=== PATIENT | female | born 1945 | race Caucasian/White ===

== ENCOUNTER 2018-08-01 11:03 | Outpatient (CLI) | payer MEDICARE, BC, SELFPAY ==
--- NOTE | 2018-08-01 10:58 | DI.RAD_ITS ---
SYMPTOMS/DIAGNOSIS: EVALUATE RIGHT THUMB RIGHT THUMB: Three views. Joint space narrowing and periarticular spurring are seen at the interphalangeal joint of the thumb. There is mild periarticular spurring at the 1st carpometacarpal joint. The bones are intact. The soft tissues are unremarkable. IMPRESSION: Osteoarthritis of the right thumb.
== END 2018-08-01 11:23 ==
PROVIDERS: PCP Family Medicine; Referring Provider Family Medicine; Visit Provider Student in an Organized Health Care Education/Training Program
DX: M25.341 Other instability, right hand (principal); M18.11 Unilateral primary osteoarthritis of first carpometacarpal joint, right hand; I10 Essential (primary) hypertension; E11.9 Type 2 diabetes mellitus without complications; Z79.84 Long term (current) use of oral hypoglycemic drugs; M65.311 Trigger thumb, right thumb
CPT/HCPCS: 99202; 99203; 73140

== ENCOUNTER 2018-08-28 11:46 | Day surgery (SDC) | payer MEDICARE, BC, SELFPAY ==
[2018-08-28 11:57] VITALS: BP 128/68; PULSE 89; RESP 16; TEMP 35.7; O2SAT 98
--- NOTE | 2018-08-28 12:56 | W.PM.DSUDISC ---
Discharge Plan Disposition Patient Disposition: HOME Condition: Good Discharge Details Reason For Visit: R Trigger Thumb Attending Provider: Monster Lomax Primary Care Provider: Adriana Houston Home Meds and New Rx's Prescriptions: Continued FREESTYLE LANCETS 1 PKT EACH 1 unit SQ DAILY Qty: 90 RF: 3 FREESTYLE LITE STRIP 1 STRIP strip 1 strip SQ DAILY Qty: 90 RF: 3 lisinopril 40 MG tablet 40 mg PO DAILY RF: 0 hydrochlorothiazide 25 MG tablet 25 mg PO DAILY RF: 0 metformin 500 MG tablet 1,000 mg PO BID RF: 0 levothyroxine 137 MCG tablet 137 mcg PO DAILY RF: 0 coenzyme Q10 [CoQ-10] 100 MG capsule 100 mg PO DAILY Qty: 3 RF: 0 omega-3 fatty acids-fish oil [Fish Oil] 1 EACH capsule 1 ea PO BID RF: 0 Vitamin D3 (calcium cit-phos) 1 EACH tablet 1 ea PO DAILY Qty: 2 RF: 0 CENTRUM SILVER TABLET 1 EACH tablet 1 ea PO DAILY RF: 0 atorvastatin 10 MG tablet 20 mg PO DAILY RF: 0 fluticasone propionate 16 GM spray,suspension 16 gm NS PRN RF: 0 loperamide [Imodium A-D] 1 MG/7.5 ML liquid 1 mg PO PRN RF: 0 cholecalciferol (vitamin D3) [Vitamin D3] 2,000 UNIT capsule 2,000 unit PO DAILY RF: 0 aspirin [Aspir-81] 81 MG tablet,delayed release (DR/EC) 81 mg PO DAILY RF: 0 trazodone 150 MG tablet 150 mg PO HS RF: 0 Januvia 25 MG tablet 25 mg PO DAILY RF: 0 ranitidine HCl 150 mg Tablet 150 mg PO HS RF: 0 Discharge Instructions Additional Instructions: Take up to 600mg Ibuprofen every 8 hours as needed for pain control in addition to 1000mg of Acetaminophen every 8 hours. Referrals: Monster Lomax MD [ [facility] STAFF PHYSICIAN] - Activity:: Elevate Remove Dressings/Wound Care:: 48 hours Shower/Bathe:: 48 hours Diet:: As Tolerated Discharge Orders Discharge Orders: Discharge Order (Routine); Ordered 08/28/18 Ordered By: Monster Lomax DS: Diagnosis Discharge Diagnosis (1) Trigger thumb, right thumb: Status: Acute
[2018-08-28] MEDS: Sodium Bicarbonate 50 MEQ/50 ML VIAL (13:01)
[2018-08-28] MEDS: Lidocaine 1% Multi-Dose 50 ML VIAL (13:04)
[2018-08-28] MEDS: Bupivacaine 0.5% Pres-Free 30 ML VIAL (13:14)
--- NOTE | 2018-08-28 14:38 | ROE_ITS ---
Date of service: 08/28/18 Time of Service: 14:37 Operative Note DATE OF PROCEDURE: 08/28/18 PRE-OP DIAGNOSIS: Trigger Finger -right thumb POST-OP DIAGNOSIS: same PROCEDURE: Trigger Finger Release -right thumb SURGEON: Monster Lomax ANESTHESIA: local ESTIMATED BLOOD LOSS: 0 PATHOLOGY: none sent COMPLICATIONS: None Patient was transported to: same day Patient's condition: stable Indications: I have seen Prachi in clinic for symptoms of a trigger finger. The catching, clicking, locking, and pain limited function. The diagnosis of trigger finger was evident. The symptoms had not responded to conservative measures. I discussed trigger finger release with the patient. I reviewed the risks of the procedure to include, but not limited to, bleeding, infection, pain, stiffness, incomplete release, damage to nerves or vessels, continued catching, recurrence. Despite these risks, the patient elected to proceed. Findings: There was a tightened A1 geneva which was released. The flexor tendons were inspected and the patient was able to move the finger without any catching, clicking, or locking. Procedure Description: Prachi was greeted in the preoperative holding area where the correct side was identified and marked. The consent was reviewed with the patient and signed. All questions were answered. She was taken back to the operating room. The patient was placed into the supine position on the operating room table with the right arm on an arm board. All bony prominences were well padded. No prophylactic antibiotics were administered since this was a clean, elective hand surgical case. The right arm was then prepped with Chloraprep and draped in a standard fashion with stock inette and extremity drape. A timeout to confirm correct identity, side and site, procedure, allergies, anesthesia, and medical concerns was performed. The surgical site was marked as a longitudinal incision directly over the A1 geneva of the involved digit. This was confirmed with palpation during finger flexion. This area, overlying the metacarpal head, was then anesthetized with 1% Lidocaine. The patient tolerated this well and once the anesthetic had setup, the procedure began. A longitudinal incision was made through skin only, approximately 1cm. The deep tissues were dissected bluntly. Once the A1 geneva and flexor tendons were identified the soft tissue including neurovascular structures were retracted medially and laterally. There were no crossing structures over the A1 geneva. The proximal edge of the geneva was identified and the geneva was incised with tenotomy scissors. There was a release of the tendons once this was fully released. The tendons were then removed from the wound and inspected. Excess synovium was resected. The tendons were then returned and the patient was asked to move the finger into deep flexion and back to extension. There was no recreation of the pre-operative symptoms. The hand was then once more inspected for any A0 geneva or area of possible constriction. The wound was then irrigated and the skin was closed with a 4-0 Nylon. This was dressed with gauze and a Conform dressing. The patient tolerated the procedure well and was returned to the Same Day Surgery area in a stable condition suffering no known complication.
== END 2018-08-28 14:00 | disposition home or self-care (01) ==
PROVIDERS: PCP Family Medicine; Visit Provider Student in an Organized Health Care Education/Training Program
PROC: (CPT 26055; principal; 2018-08-28 12:15)
DX: M65.311 Trigger thumb, right thumb (principal)
CPT/HCPCS: 26055

== ENCOUNTER → 2018-09-07 09:04 | Outpatient (BNVA) | payer MEDICARE, BC, SELFPAY | PROVIDERS: PCP Family Medicine; Referring Provider Family Medicine; Visit Provider Student in an Organized Health Care Education/Training Program | DX: Z47.89 Encounter for other orthopedic aftercare (principal); I10 Essential (primary) hypertension; E11.9 Type 2 diabetes mellitus without complications; M65.311 Trigger thumb, right thumb ==

== ENCOUNTER 2018-10-22 00:29 | Outpatient (CLI) | payer MEDICARE, BC, SELFPAY ==
--- NOTE | 2018-10-22 15:20 | DI.RAD_ITS ---
SYMPTOM/DIAGNOSIS: F/U OSTEOPOROSIS M81.0 DEXA SCAN: Routine examination. No priors for comparison. Evaluation of the right hip shows a total T-score of -2.1 and a Z-score of -0.5 This is consistent with osteopenia and an increased fracture risk. Evaluation of the lumbar spine shows a total T-score of -0.8 and a Z-score of 1.5 which is within normal limits. There is no evidence of osteoporosis.
== END 2018-10-22 00:49 ==
PROVIDERS: PCP Family Medicine; Visit Provider Family Medicine
DX: M85.88 Other specified disorders of bone density and structure, other site (principal)
CPT/HCPCS: 77080

== ENCOUNTER 2018-10-31 14:09 | Outpatient (CLI) | payer MEDICARE, BC, SELFPAY ==
--- NOTE | 2018-10-31 13:36 | DI.RAD_ITS ---
SYMPTOM/DIAGNOSIS: RT HIP PAIN PELVIS AND RIGHT HIP: Comparison is made with 14 September 2011. There is a left hip prosthesis. The right hip joint space is relatively well maintained. There is some periarticular sclerosis as well as spurring from the femoral head and acetabulum as well as subchondral cyst in the femoral head. There is spurring at the inferior S-I joints. Degenerative changes are also noted in the lower lumbar spine IMPRESSION: Moderate degenerative changes of the right hip.
== END 2018-10-31 14:29 ==
PROVIDERS: PCP Family Medicine; Referring Provider Family Medicine; Visit Provider Student in an Organized Health Care Education/Training Program
DX: M25.551 Pain in right hip (principal); M16.11 Unilateral primary osteoarthritis, right hip; Z96.642 Presence of left artificial hip joint
CPT/HCPCS: 99214; 73502

== ENCOUNTER 2019-01-10 00:20 | Outpatient (CLI) | payer MEDICARE, BC, SELFPAY ==
--- NOTE | 2019-01-10 07:26 | DI.RAD_ITS ---
EXAM: RF JOINT INJECTION FLUORO GUID CLINICAL HISTORY: RT HIP PAIN, ARTHROPATHY,M16.11,PRIMARY OA RT HIP. TECHNIQUE: Fluoroscopy was provided for guidance with injection. FINDINGS: Please see procedure note for details. Fluoro time: 8.2 seconds
[2019-01-10] MEDS: Omnipaque 300 MG/ML 10 ML BTL IJ (16:02)
[2019-01-10] MEDS: methylPREDNISolone ACETATE 80 MG/ML VIAL IM (16:03)
[2019-01-10] MEDS: Bupivacaine 0.5% Pres-Free 10 ML VIAL 6 ML IJ (16:03)
--- NOTE | 2019-01-10 16:39 | W.PROCNOTE ---
Date of service: 01/10/19 Time of Service: 15:39 Procedure Note Date of procedure: 01/10/19 Procedure: Right Hip Injection with Fluoroscopic Guidance Surgeon/Proceduralist/Physician: Monster Lomax Procedure Diagnosis: Right Hip Osteoarthritis Procedure Indications: Prachi has had persistent pain of the RIGHT hip and groin. Noninvasive measures have been tried. To serve as both diagnostic and therapeutic, an injection under fluoroscopy was recommended. I had discussed the risks of the procedure and the patient elected to proceed. Procedure Description: Prachi was greeted in the flouroscopy room. The correct side was identified and the consent was reviewed with the patient and signed. The patient was then placed in the supine position on the fluoroscopy table. The RIGHT hip was then prepped with Chloraprep. The anterolateral injection starting point was identiifed by bony landmarks and fluoroscopy. The skin and soft tissue in the tract of the injection was anesthetized with 1% Lidocaine. A spinal needle was then inserted deep into the hip joint at the level of the lateral femoral neck under fluoroscopic guidance. A small amount of Omnipaque solution was injected to confirm intraarticular placement. Once confirmed, the hip was injected with 6cc of 0.5% Bupivicaine and 80mg of Depo-Medrol. A bandaid was placed on the injection site. The patient tolerated the procedure well and noted improvement in pre-injection pain.
== END 2019-01-10 00:40 ==
PROVIDERS: PCP Family Medicine; Visit Provider Student in an Organized Health Care Education/Training Program
DX: M25.551 Pain in right hip (principal); M16.11 Unilateral primary osteoarthritis, right hip
CPT/HCPCS: 20610; 77002; J1040

== ENCOUNTER → 2019-11-25 12:55 | Outpatient (BNVA) | payer MEDICARE, BC, SELFPAY | PROVIDERS: PCP Family Medicine; Referring Provider Family Medicine; Visit Provider Student in an Organized Health Care Education/Training Program | DX: M16.11 Unilateral primary osteoarthritis, right hip (principal); E11.9 Type 2 diabetes mellitus without complications; I10 Essential (primary) hypertension; Z79.84 Long term (current) use of oral hypoglycemic drugs | CPT/HCPCS: 99213 ==

== ENCOUNTER 2019-11-27 14:30 | Outpatient (CLI) | payer MEDICARE, BC, SELFPAY ==
--- NOTE | 2019-11-27 14:30 | DI.RAD_ITS ---
EXAM: XR PELVIS AP CLINICAL HISTORY: preop. TECHNIQUE: 2D digital imaging was performed. COMPARISON: CR XR hip RT complete AP pelvis from 10/31/2018 FINDINGS: There is an old left total hip replacement. Mwib-eq-actonysq degenerative changes are seen in the ri ght hip with joint space narrowing, subchondral sclerosis and subchondral cysts. Bones are normally mineralized. The soft tissues are unremarkable. IMPRESSION: Degenerative changes of the right hip. DATA REPOSITORY: RADIATION DOSE DELIVERED:
== END 2019-11-27 14:50 ==
PROVIDERS: PCP Family Medicine; Referring Provider Family Medicine; Visit Provider Physician Assistant Surgical
DX: M16.11 Unilateral primary osteoarthritis, right hip (principal)
CPT/HCPCS: 72170

== ENCOUNTER 2019-11-29 02:17 | Outpatient (CLI) | payer MEDICARE, BC, SELFPAY ==
[2019-12-01 17:55] LABS: COVID-19 RT-PCR Result NEGATIVE (Negative)
== END 2019-11-29 02:37 ==
PROVIDERS: PCP Family Medicine; Visit Provider Student in an Organized Health Care Education/Training Program
DX: M16.11 Unilateral primary osteoarthritis, right hip (principal)
CPT/HCPCS: 36415; 80048; 85027; 86850; 86900; 86901; U0003

== ENCOUNTER 2019-11-29 03:45 | Outpatient (CLI) | payer MEDICARE, BC, SELFPAY ==
[2019-11-29 14:47] LABS: HCT 41.2 % (36.0-46.0); HGB 13.5 g/dL (11.2-15.7); MCH 30.9 pg (27.0-33.0); MCHC 32.8 % (32.0-36.0); MCV 94.3 fL (80-95); MPV 10.5 fL (8.0-11.0); Platelet Count 274 10^3/uL (130-400); RBC 4.37 10^6/uL (3.93-5.22); RDW 12.9 % (11.7-14.6); RDW-SD 44.7 fL; WBC 7.84 10^3/uL (4.4-10.8)
[2019-11-29 16:01] LABS: Anion Gap 7.3 mmol/L (3-11); BUN 14 mg/dL (7-18); CO2 30.7 mmol/L (21.0-32.0); CREATININE 0.87 mg/dL (0.55-1.02); Calcium 9.1 mg/dL (8.5-10.1); Chloride 104 mmol/L (98-107); Glucose 129 mg/dL (74-106); Potassium 4.2 mmol/L (3.5-5.1); Sodium 142 mmol/L (136-145)
== END 2019-11-29 04:05 ==
PROVIDERS: PCP Family Medicine; Visit Provider Student in an Organized Health Care Education/Training Program
DX: M16.11 Unilateral primary osteoarthritis, right hip (principal); Z01.818 Encounter for other preprocedural examination
CPT/HCPCS: 36415; 80048; 85027; 86850; 86900; 86901

== ENCOUNTER 2019-12-04 06:05 | Observation (INO) | payer MEDICARE, BC, SELFPAY ==
[2019-12-04] VITALS (10 sets, daily range): BP systolic 113–157; BP diastolic 49–78; PULSE 53–84; RESP 10–19; TEMP 35.1–36.3; O2SAT 96–100
[2019-12-04] MEDS: Acetaminophen 500 MG TAB 1000 MG PO ×2 (06:41→13:45)
[2019-12-04] MEDS: Celecoxib 200 MG CAP 400 MG PO (06:41)
[2019-12-04] MEDS: Lactated Ringers 1,000 ML 80 ML IV (07:00)
--- NOTE | 2019-12-04 07:00 | DI.RAD_ITS ---
EXAM: XR HIP RT IN OR CLINICAL HISTORY: DJD RIGHT HIP. TECHNIQUE: 2D and realtime digital imaging was performed. COMPARISON: No exams were available for comparison FINDINGS: Fluoroscopy was provided in the OR. Hard copy images show placement of a right hip prosthesis. The alignment appears satisfactory. Please see procedure note for details. Fluoro time: 55.6 seconds RADIATION DOSE DELIVERED:
[2019-12-04] MEDS: ceFAZolin 2 GM/50 ML BAG IVPB (07:46)
[2019-12-04] MEDS: Ketorolac 30 MG/ML VIAL (08:27)
[2019-12-04] MEDS: Bupivacaine 0.25% Pres-Free 30 ML VIAL (08:27)
--- NOTE | 2019-12-04 11:07 | ROE_ITS ---
Date of service: 12/04/19 Time of Service: 11:07 Operative Note Operative Note DATE OF PROCEDURE: 12/04/19 PRE-OP DIAGNOSIS: Right Hip Osteoarthritis POST-OP DIAGNOSIS: same PROCEDURE: Right Anterior Total Hip Arthroplasty SURGEON: Monster Lomax VIDEO GAMES MECHANIC: Iqra Huffman ANESTHESIA: spinal ESTIMATED BLOOD LOSS: 300 PATHOLOGY: none sent TOURNIQUET TIME: 0 COMPLICATIONS: None Patient was transported to: PACU Patient's condition: stable Implants: 1. Depuy [place] Acetabular Component, 54mm 2. Depuy Acetabular Liner, 37a62fr 3. Depuy Corail Standard Collared Femoral Stem, Size 13 4. Depuy Altrx Ceramic Femoral Head, Size 36+8.5mm Indications: I have seen Prachi in clinic for symptoms of hip arthritis, confirmed with radiographic findings. Prachi has exhausted nonoperative methods and was having significant limitations in daily function and desired better fun ction and less pain. I discussed the technical details of a hip replacement. I explained the risks of the procedure to include, but not limited to, bleeding, infection, pain, stiffness, fracture, damage to nerves and vessels, damage to muscles and tendons, loosening, instability, leg length inequality, need for repeat procedure, blood clot and cardiopulmonary demise. Despite these risks, she elected to proceed. Findings: There was significant signs of arthritis throughout the hip. Procedure Description: Prachi was greeted in the preoperative holding area where the correct side was identified and marked. The consent was reviewed with the patient and signed. The history and physical was updated. All questions were answered. Prachi was taken back to the operating room. A spinal anesthestic was then administered. The patient was placed into the supine position on the operating room table. The patient was then positioned onto the ARCH table. Both feet were wrapped with Webrill cotton wrap along with Coban. The feet were placed in specialized boots for the ARCH table, well seated within the boot and secured. SCDs were applied. The patient was then slid down onto a peroneal post and the nonoperative leg was secured in a leg parrish attached to the table. The operative side was placed into the ARCH table attachment and bed height and positioning was secured. A preoperative AP pelvis was obtained to serve as a reference for determining leg lengths. Prophylactic antibiotics in the form of Cefazolin were administered. 1g of Tranxemic Acid was given intravenously within 30 minutes of incision. The right leg was then prepped with Chloraprep and draped in a standard fashion. A second prep with Chloraprep was performed prior to placement of a shower-curtain type drape with Iodine impregnated skin protection. A timeout to confirm correct identity, side and site, procedure, allergies, anesthesia, and medical concerns was performed. An obliquely oriented incision was made starting lateral to the ASIS and running distal over the Tensor Fascia Tali (TFL) muscle belly toward the fibular head, approximately 10cm. The skin and soft tissue was dissected sharply, through Sarah?s fascia, and to the fascia of the TFL. With the fascia and superior border of the IT band identified, the fascia was incised with a new knife just above any perforators from the IT band. The TFL muscle belly was bluntly dissected away from the fascia and moved laterally. The fat between TFL and rectus was identified to ensure the dissection was not within the TFL. Blunt dissection created space between abductors and the capsule and retractor was placed over the lateral femoral neck. The fibers of the rectus femoris tendon were identified and these were freed from the anterior capsule. A second cobra retractor was placed around the medial femoral neck. The TFL was further retracted laterally to show the deep fascia. Careful dissection through this layer identified three main crossing vessels of the lateral femoral circumflex. These were cauterized in multiple locations and then cut without any noticeable bleeding. The TFL was further released bluntly from the deep fascia to expose anterior hip capsule and fat The Jonas orthopaedic retractor was then placed b eneath the TFL and against sartorius and medial soft tissues to protect and retract the soft tissues. A T-capsulotomy was then performed starting at the superior lateral acetabulum and moving distally to the intertrochanteric ridge. These capsular flaps were tagged with a No. 1 Ethibond and elevated from within. The capsular flaps were released to the shoulder of the lateral neck and to the lesser trochanter to give excellent visualization of the proximal femur. A neck osteotomy was performed using an oscillating saw based on preoperative templates. This cut started in the shoulder and of the lateral neck and exited medially. The saw was at all times directed medially to avoid injury to the greater trochanter. 6cm of traction was applied to the leg and the osteotomy opened. The femoral head was removed with a corkscrew, making sure to protect the TFL on its exit. This was measured on the back table to determing the starting reamer size. Portions of the rectus obscuring visualization were minimally elevated off the superior acetabulum. An anterior retractor was placed over the anterior wall between capsule and labrum and attached to the Gripper retraction system. A posterior retractor was placed similarly. This provided excellent visualization. The contents of the cotyloid fossa were removed with electrocautery and the labrum was removed with a knife. There was a notable floor osteophyte. There was significant chondromalacia of the superior acetabulum. Acetabular reaming began with a 48mm reamer. This first reaming was directed anterior to posterior and medial to get down to the true floor. This was inspected and reamed until the true floor was reached. The anterior retractor was then released and entry and exit was provided by traction on the capsular flaps. I then reamed sequentially up to a 54mm reamer where good fit was obtained. The larger reamers were oriented based on anatomical reference of the anterior and lateral ji to ensure proper abduction and anteversion. Positioning and size was confirmed with the fluoroscopy. A 54mm Depuy [place] acetabular component was selected. The acetabulum was reamed around the periphery with the selected acetabular size to prevent a rim fit. The deep tissues were irrigated. The acetabular component was then impacted in a position of about 40-45 degrees of abduction and 15-20 degrees of anteversion, using the patient?s anatomy as the ultimate landmark. Fluoroscopy was used to confirm this. There was excellent orthopedic radiologic technologist of the acetabular component and the inserting handle was removed. A primary acetabular screw was placed into the ilium by drilling through one of the holes in the acetabular component. This was measured and an approrpriately sized screw was placed with excellent purchase. It was checked not to be proud. A second screw was placed in a similar fashion. The acetabular liner, Depuy 17r82re polyethylene liner, was inserted and lined up with the tines of the acetabular component. There was no soft tissue interposition. The liner was then impacted into position and confirmed to be well-seated. A portion of the karolina-articular cocktail was then injected around the acetabulum into the capsule and periosteum. This cocktail consisted of 50cc of 0.25% Bupivicaine and 20cc of Exparel, expanded to a total of 120cc. Traction was released from the femur. The leg was rotated to 120 degrees. Any remaining medial capsule was released until the lesser trochanter was easily palpable. A Carter retractor was placed medially. The lateral capsule was further released into the shoulder to allow access to the greater trochanter. A Carter retractor was placed over the greater trochanter which allowed the trochanter to flip in front of the capsule for excellent exposure. The leg was brought down into maximal extension and 20 degrees of adduction while ensuring there was no impingement on the acetabulum. Any remnant capsule within the trochanter was released. Piriformis and obturator externis were identified and protected. There was excellent access to the proximal femur. The lateral neck remnant was removed with a rongeur. A blunt canal probe was used to identify the canal and trajectory for later broaching. A box osteotome initiated the broach course. A small curved rasp and a curved curette were used to work laterally. Broaching then began with a size 8 Corail broach. This was inserted manually around the trochanter and into the canal before mallet blows. The broach was seated to the neck cut level based on the neck cut and the preoperative template. Sequential broaching was continued with the [employer] pneumatic broaching device until a tight fit was obtained with good rotational control of the femur. A trial standard neck was inserted along with a +5 trial head. The leg was brought out of extension and adduction and then reduced with traction and internal rotation. The leg was stable anteriorly in a position of 30 degrees of extension and 90 degrees of external rotation. Fluoroscopy was used to ensure there was no fracture and the stem was seated well. Leg lengths were checked with an AP pelvis and pelvic reference points. SIRS-Lab navigation system was used to confirm appropriate positioning and leg length and offset. There was still slight under-correction of offset and leg length, which would be improved with the +8.5. Once content with the desired offset and leg lengths, the leg was brought back into extension, external rotation and adduction. The periosteum and surrounding tissue was injected with remaining portion of the karolina-articular cocktail. The proximal femur was irrigated as well as the deep tissues. The Cliptoneuy Corail standard collared stem, size 13, was then manually inserted into the proximal femur making sure to control rotation. It was then malleted into position with light blows, giving breaks to allow bone expansion and decrease risk of fracture. The selected Depuy Altrx Ceramic Head, size 36+8.5mm, was then placed onto the clean and dry trunnion and secured with impaction onto the tapered fit. The leg was brought back out of extension and adduction and reduced with traction and internal rotation. Stability was confirmed with no shuck at 90 degrees of external rotation and 30 degrees of extension. No impingement through range of motion arc. Final x-ray images were obtained with fluoroscopy to confirm adequate positioning and no intraoperative fracture. The deep tissues were thoroughly irrigated with Irrisept chlorhexadine solution. The second dose of TXA 1g was administered intravenously.The capsule was then reapproximated with the previously placed Ethibond sutures. The TFL fascia was finally closed with a No. 2 Stratafix, barbed suture. Deep tissues were then reapproximated with 0 Vicryl and a running 2-0 Vicryl. The skin was closed with a running 4-0 Monocryl in a subcuticular fashion. This was reinforced with skin glue. A Mepilex silver dressing was applied. At the end of the case, all counts were correct. Prachi was transferred to the hospital bed without difficulty and suffering no apparent complication. Prachi has a good prognosis. Physical therapy will start today and without restrictions, weight-bearing as tolerated. Aspirin 81mg BID will be used for DVT prophylaxis.
--- NOTE | 2019-12-04 11:10 | PT.INIE ---
Date of service: 12/04/19 Time of Service: 11:10 PT Notes Visit Reasons: R HIP TOTAL Physical Therapy Inpatient Initial Evaluation Date: 12/04/2019 Referring Doctor: Monster Lomax MD PT Orders: PT CONSULT: Status post Ortho. Status post right FRANK. Precautions: Fall. Standard. WBAT on right LE. Patient Profile/Admitting Diagnosis: Prachi is a 74-year-old female with degenerative joint disease of the right hip status right total hip arthroplasty operative day 0. PMHX: Medical History Diabetes mellitus, type 2 Hyperlipidemia Hypertension Hypothyroidism Surgical History L Hip replacement 03/2012 Ligation of fallopian tube 1988 Tonsillectomy 1956 Social History/Home Situation: Lives with in a private home with four steps to enter and rails on both sides. Independent with all aspects of ADLs without need for an assistive ambulatory device nor adaptive equipment. Equipment Owned/DME: Single-point cane Subjective: Reports numbness in buttock area and back of thighs.Complains of 2/10 pain in front of right thigh. Objective: General Observation: IV in right UE. Bilateral TEDS on. Mepilex Ag over surgical incision. Mental Status: Alert and oriented x4 Pain: 2/10 in her right hip Vital Signs: 113/54 mmHg, 60 beats per minute, 99 % on room air ambulation activity ROM: Right Upper Extremity: Shoulder Flexion WFL. Shoulder abduction WFL. Elbow flexion WFL. Wrist flexion WFL. Opening and closing of hand WFL. Left Upper Extremity: Shoulder Flexion WFL. Shoulder abduction WFL. Elbow flexion WFL. Wrist flexion WFL. Opening and closing of hand WFL. Right Lower Extremity: Hip flexion WFL. Hip abduction WFL. Knee flexion WFL. Ankle dorsiflexion WFL. Ankle plantarflexion WFL. Left Lower Extremity: Hip flexion WFL. Hip abduction WFL. Knee flexion WFL. Ankle dorsiflexion WFL. Ankle plantarflexion WFL. Strength: Right Upper Extremity: Shoulder flexors 5/5. Shoulder abductors 5/5. Elbow flexors 5/5. Elbow extensors 5/5. Parking Meter Servicer strong. Left Upper Extremity: Shoulder flexors 5/5. Shoulder abductors 5/5. Elbow flexors 5/5. Elbow extensors 5/5. Parking Meter Servicer strong. Right Lower Extremity: Hip flexors 4/5. Hip abductors 4/5. Knee flexors 5/5. Knee extensors 4/5. Ankle dorsiflexors 5/5. Ankle plantarflexors 5/5. Left Lower Extremity:Hip flexors 5/5. Hip abductors 5/5. Knee flexors 5/5. Knee extensors 5/5. Ankle dorsiflexors 5/5. Ankle plantarflexors 5/5. Sensation: Numbness reported on bilateral gluteal areas and bilateral posterior thighs. Bed Mobility/Transfers: Supine to sit standby assist HOB at 30 degrees Sit to stand contact-guard assist with verbal cues needed for hand placement Stand to sit contact-guard assist with verbal cues needed for hand placement Bed to chair contact-guard assist with verbal cues needed for hand placement Gait: 60 feet on level surface using front wheeled walker with WBAT on the right LE requiring contact-guard assist only with step to gait pattern and report of 2/10 pain in the front of the right thigh. Balance: Static Sitting: Normal Dynamic Sitting: Normal Static Standing: Fair Dynamic Standing: Fair Special Tests: Mobility Limitations Standardized Measure [facility] 6 clicks Basic Mobility Inpatient Short Form: Raw Score: 19 CMS Score: 42% deficit Informed Consent/Education: Patient instructed in purpose of PT consult and plan of care. Assessment: Prachi demonstrates functional mobility decline requiring use of a walker for all mobility ADL performance, unsteadiness of gait, difficulty with walking without an assistive device, and increased risk for falls due to postoperative status. Prachi is a 74-year-old female with degenerative joint disease of the right hip status right total hip arthroplasty operative day 0. Patient presents with clinical signs and symptoms consistent with current/admitting diagnoses that have resulted to mobility limitations, gait instability, generalized weakness, and impairment of motor control as demonstrated by the following impairment level findings: 1. Decreased strength to right hip major muscle groups 2. Impaired standing balance 3. Impaired activity tolerance 4. Numbness in bilateral gluteal areas and posterior thighs Impairments are contributing to the following functional limitations: 1. Inability to safely ambulate without assistive device and physical assistance 2. Increase completion time for mobility ADL performance 3. Increased fall risk 4. Inability to negotiate steps alone safely Patient is assessed as a 49028 moderate complexity based on the following: History: 74-year-old female with impairment level findings, functional limitations, and past medical history as indicated above Examination: Demonstrable impairment in strength, balance, and mobility level with underlying impairments and functional limitations as documented above Presentation:Evolving Decision Makin moderate complexity Goals: Goals after 1 more session 1. Supine-Sit supervision 2. Sit-Supine supervision 3. Sit-Stand supervision 4. Stand-Sit supervision 5. Bed-Chair supervision 6. Chair-Bed supervision 7. Supervision gait on level surface with use of least restrictive device for at least 300 feet without report of pain nor dyspnea 8. supervision stair negotiation while holding onto bilateral rails for at least 10 steps without report of pain nor dyspnea 9. Independent with home exercise program 10. Good static and dynamic standing balance/tolerance Plan of Care/Treatment Plan: N/A. PT consult and one treatment session only. DISCHARGE RECOMMENDATIONS: Home when medically cleared. OP PT services to facilitate return to premorbid independent level. TREATMENT CODE/TIME: 11261 x 25 minutes, 80059 x 12 minutes beginning at 11:10 PM. Thank you for the opportunity to participate in the care of this patient. Kalani Hopper PT, DPT, CLT [facility] [place], [place]
--- NOTE | 2019-12-04 11:15 | DSE_ITS ---
Date of service: 12/04/19 Time of Service: 13:55 DS: Diagnosis Discharge Diagnosis (1) Arthropathy of right hip: Status: Chronic Discharge Plan Disposition Patient Disposition: HOME Condition: Good Discharge Details Reason For Visit: R HIP TOTAL Admit Date/Time: 12/04/19 06:05 Admit Provider: Monster Lomax Attending Provider: Monster Lomax Primary Care Provider: Adriana Houston Hospital Course Hospital Course: Patient was admitted to the medical/surgical floor following the procedure. The surgery was tolerated well without any notable medical, surgical, or anesthetic complications. Mobilization began postoperatively. She was voiding spontaneously. Vitals were stable. Physical therapy worked with the patient and was cleared for discharge home. No acute medical issues. Pain was controlled on oral regimen. Home Meds and New Rx's Prescriptions: New aspirin 81 mg tablet,delayed release (DR/EC) 81 mg PO BID Qty: 60 RF: 0 acetaminophen 500 mg tablet 1,000 mg PO Q8H PRN (Reason: pain) Qty: 90 RF: 3 ibuprofen 600 mg tablet 600 mg PO TID PRNQty: 90 RF: 3 oxycodone 5 mg tablet 5 mg PO Q4H Qty: 12 RF: 0 Continued biotin 5,000 mcg tablet,disintegrating 5,000 mcg PO TID RF: 0 FREESTYLE LANCETS 1 PKT EACH 1 unit SQ DAILY Qty: 90 RF: 3 FREESTYLE LITE STRIP 1 STRIP strip 1 strip SQ DAILY Qty: 90 RF: 3 lisinopril 40 MG tablet 40 mg PO DAILY RF: 0 hydrochlorothiazide 25 MG tablet 25 mg PO DAILY RF: 0 metformin 500 MG tablet 1,000 mg PO BID RF: 0 levothyroxine 137 MCG tablet See Rx Instructions .ROUTE .COMPLEX RF: 0 coenzyme Q10 [CoQ-10] 100 MG capsule 100 mg PO DAILY Qty: 3 RF: 0 omega-3 fatty acids-fish oil [Fish Oil] 1 EACH capsule 1 ea PO BID RF: 0 Vitamin D3 (calcium cit-phos) 1 EACH tablet 1 ea PO DAILY Qty: 2 RF: 0 CENTRUM SILVER TABLET 1 EACH tablet 1 ea PO DAILY RF: 0 atorvastatin 10 MG tablet 20 mg PO DAILY RF: 0 fluticasone propionate 16 GM spray,suspension 16 gm NS PRN RF: 0 loperamide [Imodium A-D] 1 MG/7.5 ML liquid 1 mg PO PRN RF: 0 cholecalciferol (vitamin D3) [Vitamin D3] 2,000 UNIT capsule 2,000 unit PO DAILY RF: 0 trazodone 150 MG tablet 150 mg PO HS RF: 0 Januvia 25 MG tablet 25 mg PO DAILY RF: 0 famotidine 20 mg Tablet 20 mg PO QHS RF: 0 Discontinued aspirin [Aspir-81] 81 MG tablet,delayed release (DR/EC) 81 mg PO DAILY RF: 0 acetaminophen [Tylenol Extra Strength] 500 mg Tablet 1,000 mg PO Q6H PRNRF: 0 ibuprofen 400 mg Tablet 400 mg PO Q6H RF: 0 Discharge Instructions Additional Instructions: Dr. Lomax's Total Hip Discharge Instructions Activity: The most important activity is to walk. You should try to take short walks a few times a day. You have no restrictions on movement or positioning, but do not try to force what you do. You will find some stiffness and weakness with hip flexion (lifting your knee). Do not try to strengthen this too early, continue to practice walking and stairs and this will come. - Outpatient physical therapy can be helpful to help return you to a normal gait and improve your flexibility and strength. This can start around 2 weeks. For most patients, it?s not necessary. Usually this is determined at the time of discharge or at the first post-operative visit. - You should wear the NO hose on both legs for 2 weeks. You may remove those at night. These prevent blood pooling and swelling. Dressing: Keep the surgical dressing in place for at least one week, although it may stay in place untill follow-up. It may get wet after 3 days but avoid soaking the dressing. If it gets wet, just lightly pat dry. Most people prefer to cover the dressing with some ClingWrap, Saran Wrap, to keep it dry. After the first week it may be removed if desired and then replaced with light gauze and tape or nothing. It is important to always keep some gauze or the dressing between skin folds, especially when you are sitting, so the incision is not folded over on itself at the belly fold. Medications: - You should take Tylenol and an anti-inflammatory Ibuprofen as your primary pain control medications - You have been prescribed a stronger pain medication Oxycodone for breakthrough pain, take as needed as prescribed. - You should continue your stomach acid reduction agent Famotidine to help reduce stomach acid and reflux. - You will be taking Aspirin 81mg twice a day for DVT prevention unless instructed otherwise. - If you have constipation you should take Colace or Miralax (both [id number]). It takes most people 3-4 days to have a bowel movement. Follow-up: 2 weeks. If you have any acute concerns or questions, please do not hesitate to contact the office at [phone]. You may contact Dr. Lomax with any questions after h ours through the hospital at [phone] or on his cell phone at [phone]. Stand Alone Forms: Nursing Discharge Form Referrals: Monster Lomax MD [ [facility] STAFF PHYSICIAN] - 12/16/19 10:30 am Activity:: Activity as Tolerated Equipment/Supplies:: Walker Diet:: As Tolerated Discharge Orders Discharge Orders: Discharge Order (Routine); Ordered 12/04/19 Ordered By: Monster Lomax DS: Summary Status at Discharge Functional status at discharge: uses cane/walker Overall status at discharge: patient is progressing back to baseline Mental Status: mental status grossly normal Speech and Movement: speech and movement normal Mood: congruent mood Affect: normal affect Exam Psych Mental Status: mental status grossly normal Speech and Movement: speech and movement normal Mood: congruent mood Affect: normal affect DS: Data Vitals/I&O Vitals and I&O: Vital Signs Temperature 36.3 C L 12/04/19 10:25 Pulse 53 L 12/04/19 10:25 Pulse Rhythm Regular 12/04/19 06:46 Respiratory Rate 14 12/04/19 10:25 Respiratory Effort 12/04/19 06:46 Respiratory Depth Normal 12/04/19 06:46 Respiratory Pattern Normal 12/04/19 06:46 Blood Pressure 128/65 12/04/19 10:25 Pulse Oximetry 100 12/04/19 10:25 Respiratory End-tidal CO2 42 12/04/19 09:55 Oxygen Delivery Method Room Air 12/04/19 10:25 Oxygen Flow Rate 0 12/04/19 06:46 Pain Level 1 12/04/19 10:25 Intake & Output 12/03/19 12/03/19 12/04/19 11:59 23:59 11:59 Intake Total 1120 / 1120 Output Total 300 / 300 Balance 820 / 820 Weight 83.2 kg Intake: IV 970 / 970 Oral 150 / 150 Output: Estimated Blood Loss 300 / 300 Other: Emesis Description None Data Completed and Pending Labs on day of discharge: Labs from last 24 hours 12/04/19 06:20 Patient ABO/Rh AB Positive Antibody Screen Negative PFS Medical History Diabetes mellitus, type 2 Hyperlipidemia Hypertension Hypothyroidism Surgical History Hx of colonoscopy (Chronic) L Hip replacement 03/2012 Ligation of fallopian tube 1989 Tonsillectomy 1956 Family History Mother Diabetes Uterine cancer Father Heart disease Social History Smoking/Tobacco Use Status: Never Alcohol Intake: never Drug use: Never Substance use type: does not use Current gender identity: female Do you feel safe at home: Yes Do you feel safe in your relationship?: Yes
[2019-12-04] MEDS: ceFAZolin 1 GM/50 ML BAG IVPB (13:44)
--- NOTE | 2019-12-04 14:54 | PT.INTREAT ---
Date of service: 12/04/19 Time of Service: 14:54 PT Notes Visit Reasons: R HIP TOTAL Inpatient Physical Therapy Treatment Note [facility] Date: 12/04/2019 PRECAUTIONS:Fall, WBAT R SUBJECTIVE: Prachi states that she is having more pain during this afternoon's PT session than she did this morning. OBJECTIVE: PAIN: Patient c/o R hip pain with ther ex, gait, and stair training BED MOBILITY/TRANSFERS Supine-sit: I with HOB flat Sit-supine: I with HOB flat Sit-stand: S Stand-sit: S Bed-Chair: S Chair-bed: S GAIT Assistive Device: FWW Weight bearing: WBAT R Assist: SBA Distance: 100' x2 Deviation: Step-through gait pattern utilized, increased R hip pain THEREX: Patient completed a LE strengthening and stabilization program, in a supine position, as per flow sheet. Patient requires verbal cueing for proper exercise performance. STAIRS: Up/down 3x4 and 2x6 using U rail/SPC and a step-to pattern with SBA. Cueing required for sequence for decreased R hip pain ASSESSMENT: Patient tolerated session with complaints of increased R hip pain with activity. She was able to tolerate a progression in gait distance with FWW support and SBA. PLAN: As per primary PT TREATMENT CODE/TIME: 25 minutes; 51688, 64877
--- NOTE | 2019-12-05 08:36 | INDS_ITS ---
Date of service: 12/05/19 PT Notes Visit Reasons: R HIP TOTAL PT Inpatient Discharge Summary Date: 12/05/2019 Dates of Service: 12/04/2019 only This is a clinical summary of care provided on the duration of dates listed above. No charge was made in the completion of this documentation. Referring Doctor: Monster Lomax MD PT Orders: PT CONSULT: Status post Ortho. Status post right FRANK. Precautions: Fall. Standard. WBAT on right LE. Patient Profile/Admitting Diagnosis: Prachi is a 74-year-old female with degenerative joint disease of the right hip status right total hip arthroplasty operative day 1. PMHX: Medical History Diabetes mellitus, type 2 Hyperlipidemia Hypertension Hypothyroidism Surgical History L Hip replacement 03/2012 Ligation of fallopian tube 1988 Tonsillectomy 1956 Social History/Home Situation: Lives with in a private home with four steps to enter and rails on both sides. Independent with all aspects of ADLs without need for an assistive ambulatory device nor adaptive equipment. Equipment Owned/DME: Single-point cane Subjective: NT. See most recent NON DESTRUCTIVE TESTING ENGINEER notes. Objective: General Observation: NT. See most recent NON DESTRUCTIVE TESTING ENGINEER notes. Mental Status: NT. See most recent NON DESTRUCTIVE TESTING ENGINEER notes. Pain: NT. See most recent NON DESTRUCTIVE TESTING ENGINEER notes. ROM: Right Upper Extremity: Shoulder Flexion WFL. Shoulder abduction WFL. Elbow flexion WFL. Wrist flexion WFL. Opening and closing of hand WFL. Left Upper Extremity: Shoulder Flexion WFL. Shoulder abduction WFL. Elbow flexion WFL. Wrist flexion WFL. Opening and closing of hand WFL. Right Lower Extremity: Hip flexion WFL. Hip abduction WFL. Knee flexion WFL. Ankle dorsiflexion WFL. Ankle plantarflexion WFL. Left Lower Extremity: Hip flexion WFL. Hip abduction WFL. Knee flexion WFL. Ankle dorsiflexion WFL. Ankle plantarflexion WFL. Strength: Right Upper Extremity: Shoulder flexors 5/5. Shoulder abductors 5/5. Elbow flexors 5/5. Elbow extensors 5/5. Student Nurse strong. Left Upper Extremity: Shoulder flexors 5/5. Shoulder abductors 5/5. Elbow flexors 5/5. Elbow extensors 5/5. Student Nurse strong. Right Lower Extremity: Hip flexors 4/5. Hip abductors 4/5. Knee flexors 5/5. Knee extensors 4/5. Ankle dorsiflexors 5/5. Ankle plantarflexors 5/5. Left Lower Extremity:Hip flexors 5/5. Hip abductors 5/5. Knee flexors 5/5. Knee extensors 5/5. Ankle dorsiflexors 5/5. Ankle plantarflexors 5/5. Sensation: Numbness reported on bilateral gluteal areas and bilateral posterior thighs. Bed Mobility/Transfers: Supine to sit independent Sit to stand independent Stand to sit supervision Bed to chair supervision Gait: 100 feet x 2 on level surface using front wheeled walker with WBAT on the right LE requiring contact-guard assist only with step-through gait pattern and report of 2/10 pain in the front of the right thigh. Up-and-down three 4 inch steps and two 6 inch steps when holding onto one rail and single-point cane with the other hand using up to gait pattern with standby assist. Balance: Static Sitting: Normal Dynamic Sitting: Normal Static Standing: Fair Dynamic Standing: Fair Assessment: Prachi demonstrates significant functional mobility improvement during this episode of care. Prachi is a 74-year-old female with degenerative joint disease of the right hip status right total hip arthroplasty operative day 1. Goals: Goals after 1 more session 1. Supine-Sit supervision MET 2. Sit-Supine supervision MET 3. Sit-Stand supervision MET 4. Stand-Sit supervision MET 5. Bed-Chair supervision MET 6. Chair-Bed supervision MET 7. Supervision gait on level surface with use of least restrictive device for at least 300 feet without report of pain nor dyspnea NOT MET 8. Supervision stair negotiation while holding onto bilateral rails for at least 10 steps without report of pain nor dyspnea NOT MET 9. Independent with home exercise program NOT MET 10. Good static and dynamic standing balance/tolerance NOT MET Plan of Care/Treatment Plan: N/A. PT consult and one treatment session only. DISCHARGE RECOMMENDATIONS: Home when medically cleared. OP PT services to facilitate return to premorbid independent level. TREATMENT CODE/TIME: 79846 x 25 minutes, 83387 x 12 minutes beginning at 11:10 PM. Thank you for the opportunity to participate in the care of this patient. Kalani Hopper PT, DPT, CLT [facility] [place], [place]
== END 2019-12-04 15:12 | disposition home or self-care (01) ==
LOC: PDS 09:43 → MS 10:39 → PDS 12-05 08:37
PROVIDERS: Admitting Provider Student in an Organized Health Care Education/Training Program; PCP Family Medicine; Visit Provider Student in an Organized Health Care Education/Training Program
PROC: 0SR904A Replacement of Right Hip Joint with Ceramic on Polyethylene Synthetic Substitute, Uncemented, Open Approach (ICD-10-PCS; CPT 27130; principal; 2019-12-04 07:30)
DX: M16.11 Unilateral primary osteoarthritis, right hip (principal); M25.551 Pain in right hip; Z96.641 Presence of right artificial hip joint; E11.9 Type 2 diabetes mellitus without complications; I10 Essential (primary) hypertension; Z96.642 Presence of left artificial hip joint; E03.9 Hypothyroidism, unspecified; G89.18 Other acute postprocedural pain
CPT/HCPCS: 27130; 20985; C1776; 86850; 86900; 86901; 97110; 97162; 97530; NC; 73501; G0378; J0690; J1885; J2250; J2405

== ENCOUNTER 2019-12-16 10:45 | Outpatient (CLI) | payer MEDICARE, BC, SELFPAY ==
--- NOTE | 2019-12-16 10:00 | DI.RAD_ITS ---
EXAM: XR HIP RT COMPLETE AP PELVIS INDICATION: 1ST POST OP. COMPARISON: CR XR hip RT complete AP pelvis from 10/31/2018 XR HIP RT IN OR from 12/04/2019 TECHNIQUE: 2D digital imaging was performed. FINDINGS: There are stable postsurgical changes of a right total hip replacement. No evidence of hardware fail ure is seen. The bones are intact. The soft tissues are unremarkable. IMPRESSION: Stable right THR. DATA REPOSITORY: RADIATION DOSE DELIVERED:
== END 2019-12-16 11:05 ==
PROVIDERS: PCP Family Medicine; Referring Provider Family Medicine; Visit Provider Physician Assistant
DX: Z96.641 Presence of right artificial hip joint (principal)
CPT/HCPCS: 73502

== ENCOUNTER 2020-01-06 00:41 | Outpatient (CLI) | payer MEDICARE, BC, SELFPAY ==
--- NOTE | 2020-01-06 | DI.MAMMO_ITS ---
EXAM: MG MAMMO SCREENING CLINICAL HISTORY: SCREENING,Z12.31 TECHNIQUE: Bilateral full field digital CC and MLO mammographic images were obtained with 3D tomosyn thesis and utilizing computer aided detection (CAD). COMPARISON: Available for comparison. FINDINGS: Masses/Architectural Distortion: None seen. Microcalcifications: No suspicious pleomorphic-type are seen. Skin Thickening/Nipple Retraction: None. IMPRESSION: 1. No significant interval change with no specific features of malignancy noted. 2. Unless there is more urgent need, screening mammography is recommended, as per [employer] [employer] guidelines. BI-RADS Category 1 - Negative Breast Density - Category B - Scattered areas of fibroglandular density A negative radiographic report should not delay biopsy if a dominant or clinically suspicious mass is present. Up to ten percent of cancers are not identified on mammography. A negative report may reinforce clinical impression. Adenosis and dense breasts may obscure an underlying neoplasm. False positive reports average 6 to 10%. Patient will receive a letter notifying them of these results.
== END 2020-01-06 01:01 ==
PROVIDERS: PCP Family Medicine; Visit Provider Family Medicine
DX: Z12.31 Encounter for screening mammogram for malignant neoplasm of breast (principal)
CPT/HCPCS: 77063; 77067

== ENCOUNTER → 2020-01-13 11:05 | Outpatient (BNVA) | payer MEDICARE, BC, SELFPAY | PROVIDERS: PCP Family Medicine; Referring Provider Family Medicine; Visit Provider Student in an Organized Health Care Education/Training Program | DX: Z96.641 Presence of right artificial hip joint (principal); Z47.1 Aftercare following joint replacement surgery; E11.9 Type 2 diabetes mellitus without complications; I10 Essential (primary) hypertension ==

== ENCOUNTER 2021-01-18 11:55 | Outpatient (CLI) | payer MEDICARE, BC, SELFPAY ==
--- NOTE | 2021-01-18 11:30 | DI.RAD_ITS ---
Exam(s) XR HIP RT AP LAT ONLY EXAM: XR HIP RT AP LAT ONLY CLINICAL HISTORY: ANNUAL F/U R FRANK. TECHNIQUE: 2D digital imaging was performed. COMPARISON: CR XR HIP RT COMPLETE AP PELVIS from 12/16/2019 FINDINGS: Continued satisfactory position alignment of the components of the right hip prosthesis. No fracture or loosening evident. IMPRESSION: DATA REPOSITORY: RADIATION DOSE DELIVERED:
== END 2021-01-18 11:56 | disposition home or self-care (01) ==
LOC: DIORS 11:55
PROVIDERS: PCP Family Medicine; Referring Provider Family Medicine; Visit Provider Student in an Organized Health Care Education/Training Program
DX: Z96.641 Presence of right artificial hip joint (principal); Z47.1 Aftercare following joint replacement surgery
CPT/HCPCS: 99212; 73502

== ENCOUNTER → 2021-12-09 02:19 | Outpatient (CLI) | payer MEDICARE, BC, SELFPAY ==
--- NOTE | 2021-12-09 | DI.DEXA_ITS ---
Exam(s) XR DEXA BONE DENSITY W/WO JHONY EXAM: XR DEXA BONE DENSITY W/WO JHONY CLINICAL HISTORY: BONE DENSITY DISORDER M85.88, SCREENING FOR OSTEOPOROSIS TECHNIQUE: COMPARISON: Comparison examination is 10/22/2018. FINDINGS: Lateral Spine Image: Unremarkable. No compression deformities identified. Left forearm: Total T-Score: -1.8 Total Z-Score: 0.7 T- and Z-scores: Findings are consistent with osteopenia. Lumbar Spine: Total T-Score: -0.5. This compares to -0.8 on the prior examination. Total Z-Score: 2.0 T- and Z-scores: Within normal limits. IMPRESSION: No evidence of osteoporosis.
--- NOTE | 2021-12-09 | DI.MAMMO_ITS ---
Exam(s) MAMMO SCREENING EXAM: MAMMO SCREENING CLINICAL HISTORY: SCREENING MAMMO FOR BREAST CANCER Z12.31 TECHNIQUE: Bilateral full field digital CC and MLO mammographic images were obtained with 3D tomosyn thesis and utilizing computer aided detection (CAD). COMPARISON: Available for comparison. FINDINGS: Masses/Architectural Distortion: None seen. Microcalcifications: No suspicious pleomorphic-type are seen. Skin Thickening/Nipple Retraction: None. IMPRESSION: 1. No significant interval change with no specific features of malignancy noted. 2. Unless there is more urgent need, screening mammography is recommended, as per [employer] guidelines. BI-RADS Category 1 - Negative Breast Density - Category B - Scattered areas of fibroglandular density Breast density category C or D implies that the patient has dense breast tissue. Dense breast tissue is very common and is not abnormal but dense breast tissue can make it harder to find cancer on a ma mmogram. Also, dense breast tissue may increase their breast cancer risk. This information about the result of the mammogram report was provided to the patient to raise their awareness. Use this report when you speak with the patient about their risks for breast cancer, which includes their family hist ory. At that time, you may recommend for more screening tests (Ultrasound or MRI) as they might be us eful based on their risk. A negative radiographic report should not delay biopsy if a dominant or clinically suspicious mass is present. Up to ten percent of cancers are not identified on mammography. A negative report may reinforce clinical impression. Adenosis and dense breasts may obscure an underlying neoplasm. False positive reports average 6 to 10%. Patient will receive a letter notifying them of these results.
== END ==
PROVIDERS: PCP Family Medicine; Visit Provider Family Medicine
DX: M85.88 Other specified disorders of bone density and structure, other site (principal); Z12.31 Encounter for screening mammogram for malignant neoplasm of breast; Z13.820 Encounter for screening for osteoporosis
CPT/HCPCS: 77063; 77067; 77080

== ENCOUNTER → 2022-12-15 09:44 | Outpatient (BNVA) | payer MEDICARE, BC, SELFPAY | PROVIDERS: PCP Family Medicine; Referring Provider Family Medicine; Visit Provider Physical Therapy Assistant | DX: Z12.11 Encounter for screening for malignant neoplasm of colon (principal); Z86.010 Personal history of colon polyps ==

== ENCOUNTER 2022-12-29 08:57 | Day surgery (SDC) | payer MEDICARE, BC, SELFPAY ==
--- NOTE | 2022-12-28 20:00 | W.PM.DSUDISC ---
Date of service: 12/29/22 Time of Service: 11:02 Discharge Plan Disposition Patient Disposition: Home Condition: Good Discharge Details Reason For Visit: screening colonoscopy Attending Provider: Lalito Mckeon Primary Care Provider: Adriana Houston Home Meds and New Rx's Prescriptions: Continued biotin 5,000 mcg tablet,disintegrating 5,000 mcg PO TID Trulicity 4.5 mg/0.5 mL pen injector 4.5 mg subcut QWEEK FREESTYLE LANCETS 1 PKT EACH 1 unit SQ DAILY Qty: 90 FREESTYLE LITE STRIP 1 STRIP strip 1 strip SQ DAILY Qty: 90 lisinopril 40 MG tablet 40 mg PO DAILY hydrochlorothiazide 25 MG tablet 25 mg PO DAILY metformin 500 MG tablet 1,000 mg PO BID coenzyme Q10 [CoQ-10] 100 MG capsule 100 mg PO DAILY Qty: 3 omega-3 fatty acids-fish oil [Fish Oil] 1 EACH capsule 1 ea PO BID CENTRUM SILVER TABLET 1 EACH tablet 1 ea PO DAILY atorvastatin 10 MG tablet 20 mg PO DAILY fluticasone propionate 16 GM spray,suspension 16 gm NS PRN loperamide [Imodium A-D] 1 MG/7.5 ML liquid 1 mg PO PRN cholecalciferol (vitamin D3) [Vitamin D3] 2,000 UNIT capsule 2,000 unit PO DAILY trazodone 150 MG tablet 150 mg PO HS levothyroxine 137 mcg tablet See Rx Instructions .ROUTE .COMPLEX Patient Comments: Takes at 12 am Rx Instructions: 125 mcg orally aspirin 81 mg tablet,delayed release (DR/EC) 81 mg PO DAILY nystatin 100,000 unit/gram cream 1 applic topical BID metronidazole 1 % gel 1 applic topical DAILY famotidine 20 mg Tablet 20 mg PO QHS acetaminophen 500 mg tablet 1,000 mg PO Q8H PRN (Reason: pain) Qty: 90 3RF ibuprofen 600 mg tablet 600 mg PO TID PRNQty: 90 3RF Discontinued bisacodyl [Dulcolax (bisacodyl)] 5 mg tablet,delayed release (DR/EC) 5 mg PO ONCE Qty: 4 0RF Rx Instructions: Take per colonoscopy instructions provided by ordering providers office polyethylene glycol 3350 17 gram/dose powder 17 g PO ONCE Qty: 238 0RF Rx Instructions: Take per colonoscopy instructions provided by ordering providers office Discharge Instructions Additional Instructions: Prachi, we were able to complete your colonoscopy today without any difficulty. I did find 3 small polyps in your rectum. I removed these all completely. It will take a week or 2 for them to send me the results on the nature of the polyps, and I will be in touch at that point if there are any other changes. 1. If tolerated, consume a soft, low fiber diet for 1-2 days. 2[address] Do not drive, drink alcohol, operate machinery, make critical decisions, or do activities that require coordination or balance for 24 hours. 3. Because air was put into your colon during the procedure, expelling air from your rectum (passing gas or farting) is normal. 4. You may not have a bowel movement for 1-3 days because of the colonoscopy prep. This is normal. 5. Go directly to the emergency room if you notice any of the following: Develop chills (warm to touch), or if you have a thermometer and your temperature is above 101 Difficulty breathing or difficultly swallowing Persistent vomiting Severe abdominal pain, other than gas cramps Severe chest pain Black, tarry stools Any bleeding ? exceeding one tablespoon 6. Call your physician if the site where your intravenous was started becomes red, swollen, painful, and warm to touch. 7. Your physician has reviewed your pre-procedure medications. Please continue to take those medications as previously ordered. You will be given specific information/education regarding any changes to your medications before leaving. Activity:: Activity as Tolerated Diet:: As Tolerated Discharge Orders Discharge Orders: Discharge Order (Routine); Ordered 12/28/22 Ordered By: Lalito Mckeon DS: Diagnosis Discharge Diagnosis (1) Screen for colon cancer: Status: Acute Asessment and Plan: I will follow-up on polypectomy results
--- NOTE | 2022-12-28 20:02 | W.COLOREPORT ---
Date of service: 12/29/22 Time of Service: 11:03 Colonoscopy Report Date of procedure: 12/29/22 Pre-op diagnosis general: screening colonoscopy Post-op diagnosis procedure note: other (Rectal polyps) Procedure: colonoscopy with polypectomy Surgeon: Lalito Mckeon Anesthesia Type: General:No Airway Estimated blood loss (mL): 5 Pathology: none sent Complications: None Disposition: same day Indications: Prachi is 77 years old with a history of adenomatous polyps. She is here for her next screening colonoscopy Prep: Miralax/Dulcolax Procedure Start Time: Procedure End Time: : Retraction Time: 14 Findings: 0.25 cm rectal polyps x3 Procedure Description: After the induction of monitored anesthetic care, and with the patient in left lateral decubitus position, I began by performing an external anorectal exam.? Perineum and skin were normal, as was the anal verge.? There was no evidence of external hemorrhoids.? Next, I performed a digital rectal exam.? I did not appreciate any abnormal findings.? Next, I advanced a colonoscope into the rectal vault.? I performed retroflexion.? This appeared normal.? Using insufflation, I then advanced the colonoscope beyond the rectal folds and into the sigmoid colon before advancing towards the cecum.? The quality of the prep was excellent.? The scope was noted to be in the cecum by identification of the ileocecal valve and appendiceal orifice.? I then began withdrawing the colonoscope using repeated irrigation as necessary for full evaluation of the colonic mucosa. ?Once the scope was withdrawn to the level of the rectum, great care was taken to examine portions of the rectal folds.? Within the rectum are 3 small rectal polyps. Each was less than 0.25 cm. I removed these all with cold forceps polypectomy. There were all sessile in nature, and there was minimal bleeding from the polypectomy sites. Finally, the scope was withdrawn and the patient was brought to the same-day surgery recovery unit as the anesthetic wore off. ?The findings and instructions were shared with the patient prior to discharge.
[2022-12-29 09:15] VITALS: BP 136/81; PULSE 89; RESP 16; TEMP 36.4; O2SAT 98
[2022-12-29] MEDS: Lactated Ringers 1,000 ML 80 ML IV (09:37)
--- NOTE | 2022-12-29 09:54 | W.ANESPRE ---
General Info Date of Service Date Performed: 12/29/22 Height: 5 ft 7 in Weight: 86 kg Body Mass Index (BMI): 29.7 Surgical Procedure: Operation Date: 12/29/22 10:35 Proposed Procedure Side Surgeon ligia Mckeon MD Meds Allergies and Home Medications Allergies Allergy/AdvReac Type Severity Reaction Status Date / Time Environmental Allergies Allergy Intermediate Itchy, Uncoded 12/29/22 09:10 watery eyes Glipizide Allergy Unknown Other (See Uncoded 12/29/22 09:10 Comment) Home Medication Medication Instructions Recorded Freestyle Lancets 1 unit SQ DAILY ##90 11/17/09 Freestyle Lite Strip 1 strip SQ DAILY ##90 11/17/09 hydrochlorothiazide 25 mg tablet 25 mg PO DAILY 07/09/12 lisinopril 40 mg tablet 40 mg PO DAILY 07/09/12 Centrum Silver Tablet 1 ea PO DAILY 07/24/13 coenzyme Q10 100 mg capsule 100 mg PO DAILY ##3 07/24/13 (CoQ-10) metformin 500 mg tablet 1,000 mg PO BID 07/24/13 omega-3 fatty acids-fish oil 300 1 ea PO BID 07/24/13 mg-1,000 mg capsule (Fish Oil) atorvastatin 10 mg tablet 20 mg PO DAILY 07/31/14 cholecalciferol (vitamin D3) 50 2,000 unit PO DAILY 07/31/14 mcg (2,000 unit) capsule (Vitamin D3) fluticasone propionate 50 16 gm NS PRN 07/31/14 mcg/actuation nasal spray,suspension loperamide 1 mg/7.5 mL oral liquid 1 mg PO PRN 07/31/14 (Imodium A-D) trazodone 150 mg tablet 150 mg PO HS 08/03/15 biotin 5,000 mcg disintegrating 5,000 mcg PO TID 11/27/19 tablet famotidine 20 mg tablet 20 mg PO QHS 11/28/19 acetaminophen 500 mg tablet 1,000 mg PO Q8H PRN pain #90 tabs 12/04/19 ibuprofen 600 mg tablet 600 mg PO TID PRN #90 tabs 12/04/19 levothyroxine 137 mcg tablet See Rx Instructions .Route .COMPLEX 01/29/21 aspirin 81 mg tablet,delayed 81 mg PO DAILY 09/30/22 release metronidazole 1 % topical gel 1 applic topical DAILY 09/30/22 nystatin 100,000 unit/gram topical 1 applic topical BID 09/30/22 cream dulaglutide 4.5 mg/0.5 mL 4.5 mg subcut QWEEK 12/15/22 subcutaneous pen injector (Ivone) Current Visit Medications: Current Medications Generic Name Dose Route Start Last Admin Trade Name Freq PRN Reason Stop Dose Admin Hyoscyamine Sulfate 0.125 mg 12/28/22 20:03 Hyoscyamine 0.125 Mg Sl/Oral/Chew SL 01/27/23 20:02 DIRECTED PRN Ringer's Solution 1,000 mls @ 80 mls/hr 12/29/22 06:00 12/29/22 09:37 IV 01/27/23 23:59 80 mls/hr INFUSION CRESCENCIO Administration IV Miscellaneous Supplies 1 each 12/29/22 06:00 Iv Access IV 01/27/23 23:59 DIRECTED CRESCENCIO Ondansetron HCl 4 mg 12/28/22 20:03 Ondansetron 4 Mg/2 Ml Vial IVP 01/27/23 20:02 Q4H PRN PRN Nausea / Vomiting Sodium Chloride 0 ml 12/29/22 06:00 Normal Saline Flush 10 Ml Syr IV 01/27/23 23:59 PRN PRN Sodium Chloride 0 ml 12/29/22 06:00 Normal Saline 10 Ml Vial IJ 01/27/23 23:59 DIRECTED PRN Sterile Water 0 ml 12/29/22 06:00 Water,Injection,Sterile 10 Ml Vial IJ 01/27/23 23:59 DIRECTED PRN PFSH Active Problems Active Problems: Problem Status Onset Code Screen for colon cancer Z12.11 Osteopenia M85.80 Chronic diarrhea K52.9 Insomnia G47.00 Obesity E66.9 Vitamin D deficiency E55.9 Rosacea L71.9 Pain in right shoulder M25.511 Irritable bowel syndrome with diarrhea K58.0 Status post total hip replacement, 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/04/19 Z96.641 Trigger thumb, right thumb M65.311 Arthritis of carpometacarpal (CMC) joint of right thumb M18.11 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 M25.341 Arthropathy of right hip M16.11 Degenerative joint disease of right hip M16.11 Medical History Medical History Allergic rhinitis Hypercholesterolemia Hyperlipidemia Hypertension Hypomagnesemia Hypothyroidism Microalbuminuria Ocular migraine Surgical History Surgical History History of arthroplasty of right hip Hx of colonoscopy (~05/2014) L Hip replacement 03/2012 Ligation of fallopian tube 1988 Tonsillectomy 1957 Tobacco Smoking/Tobacco Use Status: Never Alcohol Alcohol Intake: never Substance Use Substance use: Never Substance use type: does not use Vital Signs and Lab Results Vital Signs Most Recent Vital Signs in EMR: Most Recent Vital Signs Temp Pulse Resp BP Pulse Ox 36.4 C L 89 16 136/81 98 12/29/22 09:15 12/29/22 09:15 12/29/22 09:15 12/29/22 09:15 12/29/22 09:15 Lab Results Blood Type / Crossmatch: No Data to Display Complete Blood Count: No Data to Display Complete Metabolic Panel: No Data to Display Liver Function Panel: No Data to Display Coagulation Panel: No Data to Display Cardiac Panel: No Data to Display Arterial Blood Gas: No Data to Display Venous Blood Gas: No Data to Display Pancreas Panel: No Data to Display Thyroid Panel: No Data to Display Infectious Disease: No Data to Display Blood Cultures: No Data to Display Toxicology Panel: No Data to Display Anesthesia Assessment and Plan Anesthesia History Personal History: No History of Anesthesia Complications Family History: No Family History of Anesthesia Complications Exercise Tolerance Exercise Tolerance: Metabolic Equivalents>4 Cardiac & Pulmonary Exam Cardiac Exam: Normal S1/S2 Heart Sounds Pulmonary Exam: Clear Bilateral Breath Sounds Implantable Cardiac Device Does patient have a Pacemaker or an ICD?: No Airway Exam Known Difficult Airway: No Mallampati Class: 4 Mouth Opening: Narrow (< 3cm) Thyromental Distance: Less than 3 cm Neck Range of Motion: Full ROM Neck Circumference: Normal Teeth Condition: Normal Dentition ASA Classification ASA Score: ASA 2 Emergency Case?: No NPO Status NPO Status: NPO Clears >2 hours, Solids >8 hours Anesthesia Plan Resuscitation Status: Full Code Anesthesia Technique: General Anesthesia Airway Planned: Natural Airway Monitors Used: Standard Monitors Preoperative Comments:: 77 yo female for colo. sig PMHx: HTN, hypothyroid, DM (last dose of trulicity over a week ago), never smoker, Previous Anes: - FRANK, spinal, prop sedation, no issues.
[2022-12-29 09:58] VITALS: BMI 29.7
--- NOTE | 2022-12-29 10:25 | BOWEL_PTH ---
PATIENT: Prachi Torre LOC: [facility] U#:[id number] AGE/SX: 77/F ROOM: RE12/29/[address]: Lalito Mckeon MD : 1945 BED: DIS: 12/29/2022 SPEC #: [id number] RECD: 12/29/22 12:38 STATUS: DIOGENES REQ #: [id number] SAGAR: 12/29/22 10:[address]: Lalito Mckeon DEPT: Surgical Specimen RECD BY: Kasey Parsons ENTERED: 12/29/22 12:39 SP TYPE: Bowel OTHR DR: Adriana Houston Tissues: 1 - BIOPSY BOWEL Procedures: GROSS AND MICRO LEVEL 4 Comments: [id number]
[2022-12-29 10:53] VITALS: BP 115/66; PULSE 82; RESP 16; TEMP 36.5; O2SAT 95
--- NOTE | 2022-12-29 11:01 | W.ANESPOSTOP ---
Postoperative Evaluation Date, Time and Location Date Performed: 12/29/22 Time Performed: 11:00 Patient Location: Day Surgery Unit Vital Signs Most Recent Imported Vital Signs: Most Recent Vital Signs Temp Pulse Resp BP Pulse Ox 36.5 C 82 16 115/66 95 12/29/22 10:53 12/29/22 10:53 12/29/22 10:53 12/29/22 10:53 12/29/22 10:53 Pain Score Most Recent Pain Score: Most Recent Pain Score Pain Level 0 12/29/22 10:53 Assessment Mental Status: Awake (Alert & Oriented to Patient Baseline) Airway and Respiratory Function: Patent airway with normal (patient baseline) respiratory exam Cardiovascular Function: Hemodynamically Stable Hydration Status: Adequately Hydrated Nausea & Vomiting: No Nausea or Vomiting Pain: Pt. Denies Any Pain Peripheral Nerve Block: Patient did not receive a nerve block
[2022-12-29 11:10] VITALS: BP 128/74; PULSE 76; RESP 16; TEMP 36.4; O2SAT 97
== END 2022-12-29 11:20 | disposition home or self-care (01) ==
PROVIDERS: PCP Family Medicine; Visit Provider Surgery
PROC: 0DJD8ZZ Inspection of Lower Intestinal Tract, Via Natural or Artificial Opening Endoscopic (ICD-10-PCS; CPT 45378; principal; 2022-12-29 10:30)
DX: Z12.11 Encounter for screening for malignant neoplasm of colon (principal); K62.1 Rectal polyp; Z86.010 Personal history of colon polyps
CPT/HCPCS: 45380; 88305; J2001

== ENCOUNTER → 2023-09-18 02:03 | Outpatient (CLI) | payer MEDICARE, BC, SELFPAY ==
--- NOTE | 2023-09-18 | DI.MAMMO_ITS ---
Exam(s) MAMMO SCREENING EXAM: MAMMO SCREENING CLINICAL HISTORY: SCREENING, Z00.00,adult health examination TECHNIQUE: Bilateral full field digital CC and MLO mammographic images were obtained with 3D tomosyn thesis and utilizing computer aided detection (CAD). COMPARISON: Available for comparison. FINDINGS: Masses/Architectural Distortion: None seen. Microcalcifications: No suspicious pleomorphic-type are seen. Skin Thickening/Nipple Retraction: None. IMPRESSION: 1. No significant interval change with no specific features of malignancy noted. 2. Unless there is more urgent need, screening mammography is recommended, as per [employer] guidelines. BI-RADS Category 1 - Negative Breast Density - Category B - Scattered areas of fibroglandular density Breast density category C or D implies that the patient has dense breast tissue. Dense breast tissue is very common and is not abnormal but dense breast tissue can make it harder to find cancer on a ma mmogram. Also, dense breast tissue may increase their breast cancer risk. This information about the result of the mammogram report was provided to the patient to raise their awareness. Use this report when you speak with the patient about their risks for breast cancer, which includes their family hist ory. At that time, you may recommend for more screening tests (Ultrasound or MRI) as they might be us eful based on their risk. A negative radiographic report should not delay biopsy if a dominant or clinically suspicious mass is present. Up to ten percent of cancers are not identified on mammography. A negative report may reinforce clinical impression. Adenosis and dense breasts may obscure an underlying neoplasm. False positive reports average 6 to 10%. Patient will receive a letter notifying them of these results.
== END ==
PROVIDERS: PCP Family Medicine; Visit Provider Family Medicine
DX: Z12.31 Encounter for screening mammogram for malignant neoplasm of breast (principal)
CPT/HCPCS: 77063; 77067

== ENCOUNTER 2023-11-23 09:57 | Emergency (ER) | payer MEDICARE, BC, SELFPAY ==
[2023-11-23 10:00] VITALS: BP 140/68; PULSE 88; RESP 13; TEMP 36.6; O2SAT 96
--- NOTE | 2023-11-23 10:49 | DI.RAD_ITS ---
Exam(s) XR KNEE RT 3V AP,LAT,ECTOR EXAM: XR KNEE RT 3V AP,LAT,ECTOR CLINICAL HISTORY: right knee. TECHNIQUE: 2D digital imaging was performed. Three views. COMPARISON: No exams were available for comparison FINDINGS: BONES: No acute fracture is present. No bony destructive lesion is seen. JOINTS: The knee is normally aligned. A joint effusion is seen. Joint spaces are maintained. SOFT TISSUE: Venous varicosities. IMPRESSION: Joint effusion. DATA REPOSITORY: RADIATION DOSE DELIVERED:
[2023-11-23 11:07] VITALS: BP 126/73; PULSE 85; RESP 18; O2SAT 96
--- NOTE | 2023-11-25 08:41 | ED.GENADUL_ITS ---
Discharge Plan Disposition Patient Disposition: Home Condition: Stable Discharge Details Clinical Impression: Knee pain Primary Care Provider: Adriana Houston ED Provider: Kasey Arrieta Home Meds and New Rx's Prescriptions: Continued biotin 5,000 mcg tablet,disintegrating 5,000 mcg PO TID Trulicity 4.5 mg/0.5 mL pen injector 4.5 mg subcut QWEEK FREESTYLE LANCETS 1 PKT EACH 1 unit SQ DAILY Qty: 90 FREESTYLE LITE STRIP 1 STRIP strip 1 strip SQ DAILY Qty: 90 lisinopril 40 MG tablet 40 mg PO DAILY hydrochlorothiazide 25 MG tablet 25 mg PO DAILY metformin 500 MG tablet 1,000 mg PO BID coenzyme Q10 [CoQ-10] 100 MG capsule 100 mg PO DAILY Qty: 3 omega-3 fatty acids-fish oil [Fish Oil] 1 EACH capsule 1 ea PO BID CENTRUM SILVER TABLET 1 EACH tablet 1 ea PO DAILY atorvastatin 10 MG tablet 20 mg PO DAILY fluticasone propionate 16 GM spray,suspension 16 gm NS PRN loperamide [Imodium A-D] 1 MG/7.5 ML liquid 1 mg PO PRN cholecalciferol (vitamin D3) [Vitamin D3] 2,000 UNIT capsule 2,000 unit PO DAILY trazodone 150 MG tablet 150 mg PO HS levothyroxine 137 mcg tablet See Rx Instructions .ROUTE .COMPLEX Patient Comments: Takes at 12 am Rx Instructions: 125 mcg orally aspirin 81 mg tablet,delayed release (DR/EC) 81 mg PO DAILY nystatin 100,000 unit/gram cream 1 applic topical BID PRN metronidazole 1 % gel 1 applic topical DAILY PRN famotidine 20 mg Tablet 20 mg PO QHS acetaminophen 500 mg tablet 1,000 mg PO Q8H PRN (Reason: pain) Qty: 90 3RF ibuprofen 600 mg tablet 600 mg PO TID PRNQty: 90 3RF Ozempic 2 mg/dose (8 mg/3 mL) pen injector 2 mg SUBCUT QWEEK Discharge Instructions Instructions: Knee Pain ED Additional Instructions: May apply [id number] Voltaren or diclofenac gel/ibuprofen gel Continue taking Tylenol arthritis as needed for pain Follow-up with your primary care physician for recheck in 1 week and you may use walker or cane to rest your knee is much as possible Use the knee brace and return earlier should you have new or worsening complaints Referrals: Adriana Houston [Primary Care Provider] - 1 week Discharge Data Discharge Date/Time-TO BE ENTERED AT DEPARTURE: 11/23/23 11:10 HPI General Date/Time Provider Initiated Documentation: 11/23/23 10:15 . HPI Narrative: This 78-year-old female after mechanical fall tripped on steps yesterday. Landing on her right knee. Denies any additional injuries. Reports pain with ambulation at this time. Related Data Home Medications ?Medication ?Instructions ?Recorded ?Confirmed Freestyle Lancets 1 unit SQ DAILY ##90 11/17/09 11/23/23 Freestyle Lite Strip 1 strip SQ DAILY ##90 11/17/09 11/23/23 hydrochlorothiazide 25 mg tablet 25 mg PO DAILY 07/09/12 11/23/23 lisinopril 40 mg tablet 40 mg PO DAILY 07/09/12 11/23/23 Centrum Silver Tablet 1 ea PO DAILY 07/24/13 11/23/23 coenzyme Q10 100 mg capsule 100 mg PO DAILY ##3 07/24/13 11/23/23 (CoQ-10) metformin 500 mg tablet 1,000 mg PO BID 07/24/13 11/23/23 omega-3 fatty acids-fish oil 300 1 ea PO BID 07/24/13 11/23/23 mg-1,000 mg capsule (Fish Oil) atorvastatin 10 mg tablet 20 mg PO DAILY 07/31/14 11/23/23 cholecalciferol (vitamin D3) 50 2,000 unit PO DAILY 07/31/14 11/23/23 mcg (2,000 unit) capsule (Vitamin D3) fluticasone propionate 50 16 gm NS PRN 07/31/14 11/23/23 mcg/actuation nasal spray,suspension loperamide 1 mg/7.5 mL oral liquid 1 mg PO PRN 07/31/14 11/23/23 (Imodium A-D) trazodone 150 mg tablet 150 mg PO HS 08/03/15 11/23/23 biotin 5,000 mcg disintegrating 5,000 mcg PO TID 11/27/19 11/23/23 tablet famotidine 20 mg tablet 20 mg PO QHS 11/28/19 11/23/23 acetaminophen 500 mg tablet 1,000 mg (2 x 500 mg) PO Q8H PRN 12/04/19 11/23/23 pain #90 tabs ibuprofen 600 mg tablet 600 mg PO TID PRN #90 tabs 12/04/19 11/23/23 levothyroxine 137 mcg tablet See Rx Instructions .Route .COMPLEX 01/29/21 11/23/23 aspirin 81 mg tablet,delayed 81 mg PO DAILY 09/30/22 11/23/23 release metronidazole 1 % topical gel 1 applic topical DAILY PRN 09/30/22 11/23/23 nystatin 100,000 unit/gram topical 1 applic topical BID PRN 09/30/22 11/23/23 cream dulaglutide 4.5 mg/0.5 mL 4.5 mg subcut QWEEK 12/15/22 11/23/23 subcutaneous pen injector (Trulicity) semaglutide 2 mg/dose (8 mg/3 mL) 2 mg subcut QWEEK 11/23/23 11/23/23 subcutaneous pen injector (Ozempic) Previous Rx's ?Medication ?Instructions ?Recorded acetaminophen 500 mg tablet 1,000 mg (2 x 500 mg) PO Q8H PRN 12/04/19 pain #90 tabs ibuprofen 600 mg tablet 600 mg PO TID PRN #90 tabs 12/04/19 Allergies Allergy/AdvReac Type Severity Reaction Status Date / Time Environmental Allergies Allergy Intermediate Itchy, Uncoded 11/23/23 10:10 watery eyes Glipizide Allergy Unknown Other (See Uncoded 11/23/23 10:10 Comment) General Stated Complaint: Orthopedic JOHNATHAN: 4 Exam Narrative Exam Narrative: 78-year-old female no acute distress with tenderness mild swelling to right knee. No evidence of open fracture, no tenderness to right hip or right ankle. No visible sign of head trauma Course Vital Signs Vital signs: Vital Signs Temperature 36.6 C 11/23/23 10:00 Pulse 88 11/23/23 10:00 Respiratory Rate 13 11/23/23 10:00 Blood Pressure 140/68 11/23/23 10:00 Pulse Oximetry 96 11/23/23 10:00 Temperature 36.6 C 11/23/23 10:00 Temperature Source Oral 11/23/23 10:00 Pulse 85 11/23/23 11:07 Respiratory Rate 18 11/23/23 11:07 Blood Pressure 126/73 11/23/23 11:07 Blood Pressure Position Sitting 11/23/23 10:00 Pulse Oximetry 96 11/23/23 11:07 Oxygen Delivery Method Room Air 11/23/23 10:00 Oxygen Flow Rate 0 11/23/23 10:00 Pain Level 8 11/23/23 10:00 Medical Decision Making 78-year-old female presenting with right knee injury. Denies any additional injury. X-ray shows evidence of small effusion per radiology interpretation my review. Placed in a brace. Ambulatory with steady gait, no acute distress, neurovascularly intact referral PCP for recheck, in 1 week Quality:SDOH Health Related Social Needs: No Data to Display PFSH All Active Problems (Updated 11/23/23 @ 10:51 by PATRICIA Terry) Knee pain (Acute) Hyperplastic colon polyp (Acute) Screen for colon cancer (Acute) Osteopenia (Acute) Chronic diarrhea (Acute) Insomnia (Acute) Obesity (Chronic) Vitamin D deficiency (Acute) Rosacea (Acute) Pain in right shoulder (Acute) Irritable bowel syndrome with diarrhea (Acute) Status post total hip replacement, right (Acute 12/04/19) Trigger thumb, right thumb (Acute) Arthritis of carpometacarpal (CMC) joint of right thumb (Chronic) 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) Arthropathy of right hip (Chronic) Injection under fluro: 01/10/19 Degenerative joint disease of right hip (Acute) Medical History (Updated 11/23/23 @ 10:51 by PATRICIA Terry) Hypercholesterolemia Allergic rhinitis Microalbuminuria Ocular migraine Hypomagnesemia Hypothyroidism Hyperlipidemia Hypertension Surgical History (Updated 12/30/22 @ 09:18 by Rosenda Phipps) History of arthroplasty of right hip Hx of colonoscopy (~12/2022) polups Ligation of fallopian tube 1988 Tonsillectomy 1956 L Hip replacement 03/2012 Family History Mother Diabetes Uterine cancer Father Heart disease Social History Smoking/Tobacco Use Status: Never Smoking risk assessment performed?: Yes Alcohol Intake: never Drug use: Never Substance use type: does not use Housing: house Current gender identity: female Do you feel safe at home: Yes Do you feel safe in your relationship?: Yes
== END 2023-11-23 11:10 | disposition home or self-care (01) ==
LOC: ER 11:06
PROVIDERS: Emergency Provider Physician Assistant; PCP Family Medicine
DX: M25.561 Pain in right knee (principal); W10.8XXA Fall (on) (from) other stairs and steps, initial encounter
CPT/HCPCS: 29505; 73562; 99283